=== PATIENT | female | born 1955 | race Caucasian/White ===

== ENCOUNTER → 2023-05-20 08:00 | Outpatient (CLI) | payer MEDICARE, SELFPAY ==
--- NOTE | ~2023-05-20 | US_ITS ---
EXAMINATION: US soft tissue pelvic DATE: 05/20/2023 08:20 INDICATION: Right lower quadrant abdominal lump. History of right-sided inguinal hernia repair. TECHNIQUE: Multiple transabdominal sonographic images of the pelvis were obtained. COMPARISON: Right hip MRI 12/04/15 FINDINGS: In the patient's area of concern in right groin, there is a 4.1 x 2.0 x 1.3 cm hypoechoic subcutaneou s mass. IMPRESSION: 1. Right groin mass, which may be surgical changes of prior hernia repair or a recurrent hernia. Reviewed, dictated and finalized at location E. [employer]
== END ==
PROVIDERS: PCP Family Medicine; Visit Provider Nurse Practitioner Family
DX: R10.31 Right lower quadrant pain (principal)
CPT/HCPCS: 76857

== ENCOUNTER → 2023-05-28 09:14 | Outpatient (CLI) | payer MEDICARE, SELFPAY ==
--- NOTE | ~2023-05-28 | CT_ITS ---
EXAMINATION: CT abdomen pelvis w con DATE: 05/28/2023 09:45 INDICATION: Right groin mass TECHNIQUE: Computed tomography (CT) of the abdomen and pelvis was performed with 100 mL Omnipaque-350 intravenous contrast. Automated exposure control and iterative reconstruction technique were employe d. The dose-length product was 462.56 mGy-cm. COMPARISON: None FINDINGS: There are few calcified pulmonary nodules the bilateral lower lungs along with a few scattered spleni c calcific lesions consistent with old granulomatous disease. Heart size is normal. No pericardial or pleural effusion. Dual-lead cardiac pacemaker with lead tips in the right atrium and right ventricle . Small sliding-type hiatal hernia. Liver, gallbladder, spleen and bilateral adrenal glands are thania l. There are few centimeters low-attenuation cyst in the right kidney and larger 2.5 cm cyst at the l ower pole of the left kidney. Large amount of stool scattered throughout the colon. Normal appendix. A short segment of small bowel extends into a small right inguinal hernia. No more proximal bowel dil ation to suggest obstruction. Mucosal enhancement can be seen within as well as proximal and distal t o the herniated segment of bowel. Postoperative changes in the left inguinal region. Pessary of the v aginal vault. Anteverted uterus and bladder are normal. There is prominent dilation of the bilateral gonadal veins and parametrial vessels which may reflect collateral drainage from the left kidney with significant narrowing of the left renal vein where it passes anterior to the aorta. No free intraper itoneal gas or fluid. No pathologically enlarged abdominal or pelvic lymphadenopathy. Right total hip arthroplasty. L4 laminectomy and combined anterior and posterior L4-L5 spinal fusion with bilateral vertical monty and pedicle screw fixation. IMPRESSION: 1. Short segment of small bowel extends into a small right inguinal hernia without evident secondary obstruction or ischemia. 2. Prominent dilation of the bilateral gonadal veins and parametrial vessels which could be seen in s etting of pelvic vascular congestion syndrome and may represent collateral drainage of the left kidne y with significant stenosis/extrinsic compression of the left renal vein where it passes anterior to the aorta. Reviewed, dictated and finalized at location A. PACKER IMPRESSION: 1. Short segment of small bowel extends into a small right inguinal hernia with out evident secondary obstruction or ischemia. 2. Prominent dilation of the bilateral gonadal veins and parametrial vessels wh ich could be seen in setting of pelvic vascular congestion syndrome and may rep resent collateral drainage of the left kidney with significant stenosis/extrins ic compression of the left renal vein where it passes anterior to the aorta.
[2023-05-28 09:36] LABS: Estimated Glomerular Filt Rate > 60
== END ==
PROVIDERS: PCP Nurse Practitioner Family; Visit Provider Nurse Practitioner Family
DX: R19.09 Other intra-abdominal and pelvic swelling, mass and lump (principal)
CPT/HCPCS: 74177; Q9967